=== PATIENT | female | born 1995 | race Caucasian/White ===

== ENCOUNTER 2023-04-23 20:18 | Emergency (ER) | payer OTHER ==
[~2023-04-23] VITALS: Ht 165.1 cm; Wt 112.4 kg
[2023-04-23 21:40] VITALS: BP 125/86
[2023-04-24] MEDS ORDERED: famotidine 20mg tablet PO ONE
[2023-04-24] MEDS ORDERED: FAMO-128 PO (00:01)
== END 2023-04-24 00:24 | disposition home or self-care (01) ==
LOC: ER 20:19
DX: L23.7 Allergic contact dermatitis due to plants, except food (principal); Z88.5 Allergy status to narcotic agent; Z79.899 Other long term (current) drug therapy
CPT/HCPCS: 99282